=== PATIENT | male | born 1935 | race Two or more races ===

== ENCOUNTER 2017-12-14 00:24 | Emergency (ER) | payer MEDICAID, OTHER ==
[~2017-12-14] VITALS: Ht 165.1 cm; Wt 74.8 kg
--- NOTE | 2017-12-14 00:24 | NUR ---
DR IVETTE SINGH AT BEDSIDE FOR MSE.
--- NOTE | 2017-12-14 00:24 | NUR ---
PT VOMITED IN GURNEY AND ON FLOOR ON WAY TO ROOM BY EMS.
--- NOTE | 2017-12-14 00:29 | NUR ---
PT PRESENTS TO ED BIB AMBULANCE FOLLOWING A REPORTED SYNCOPAL EPISODE. SON STATES THEY WERE OUT TO DINNER, WHEN PT GRABBED HIS HEAD AND SUDDENLY COLAPSED/FELL. PT PRESENTS UNREPONSIVE, BUT WITHDRAWS TO PAIN. PUPILS FIXED AND EQUAL, UNREACTIVE TO LIGHT.
--- NOTE | 2017-12-14 00:35 | NUR ---
CODE STROKE INITIATED
--- NOTE | 2017-12-14 00:35 | NUR ---
EKG COMPLETED. PT ON MONITOR, PULSE OX, AND BP PER MD.
--- NOTE | 2017-12-14 00:36 | NUR ---
PT CONTINUES TO WRETCH IN BED. DECISION MADE BY DR STEELE TO PREPARE FOR INTUBATION TO PROTECT PT AIRWAY.
[2017-12-14] MEDS ORDERED: ONDANSETRON 4 MG/2 ML VIAL IV ONE (00:45)
[2017-12-14] MEDS ORDERED: PROPOFOL 100 ML ONE (00:49)
--- NOTE | 2017-12-14 00:55 | NUR ---
Note zana in EDM - 12/16/17 at 0237 by OLIVERIO UPON ADMINISTRATION OF ASPIRIN SUPPOSITORY, SKIN ASSESSED. NO SKIN ISSUES OR NOTED TRAUMA FROM SYNCOPAL EPISODE. PT REPOSITIONED FOR COMFORT. ALONSO PLACED W/O ISSUE, AND URINE SENT TO LAB.
[2017-12-14 01:00] LABS: BASOPHILS % (AUTO) 0.4 % (0.0-2.0); EOSINOPHILS # (AUTO) 0.2 K/uL (0.0-0.7); EOSINOPHILS % (AUTO) 2.4 % (0.0-7.0); HEMATOCRIT 47.4 % (36.7-47.1); HEMOGLOBIN 16.1 g/dL (12.5-16.3); LYMPHOCYTES # (AUTO) 3.9 K/uL (20.0-40.0); LYMPHOCYTES % (AUTO) 42.8 % (20.5-51.5); MEAN CORPUSCULAR HEMOGLOBIN 31.3 uug (23.8-33.4); MEAN CORPUSCULAR HGB CONC 34 g/dL (32.5-36.3); MEAN CORPUSCULAR VOLUME 92.4 fL (73.0-96.2); MONOCYTES # (AUTO) 0.7 K/uL (2.0-10.0); MONOCYTES % (AUTO) 8.3 % (0.0-11.0); NEUTROPHILS # (AUTO) 4.1 K/uL (1.8-8.9); NEUTROPHILS % (AUTO) 46.1 % (38.5-71.5); PLATELET COUNT (AUTO) 167 K/uL (152-348); RED BLOOD CELL COUNT(AUTO) 5.13 MIL/uL (4.06-5.63)
[2017-12-14] MEDS ORDERED: ROCURONIUM BROMIDE 50 MG/5 ML VIAL IV ONE (01:00)
[2017-12-14] MEDS ORDERED: ETOMIDATE 20 MG/10 ML VIAL IV ONE (01:00)
[2017-12-14] MEDS ORDERED: PROPOFOL 100 ML IV PRN (01:00)
--- NOTE | 2017-12-14 01:00 | NUR ---
PT TAKEN TO CT. ACCOMPANIED BY RT AND RN ALONG W/ PUTTIER
--- NOTE | 2017-12-14 01:06 | NUR ---
PER PTS SON, PT TAKES ELIQUIS (ANTICOAGULANT), MAKING PT INELIGIBLE FOR TPA IF INDICATED.
[2017-12-14 01:12] LABS: ALANINE AMINOTRANSFERASE 44 U/L (16-63); ALKALINE PHOSPHATASE 126 U/L (50-136); ASPARTATE AMINOTRANSFERASE 24 U/L (15-37); BILIRUBIN,DIRECT 0.3 mg/dL (0.0-0.2); BILIRUBIN,TOTAL 1.7 mg/dL (0.2-1.0); CARBON DIOXIDE 30 mmol/L (21-32); CHLORIDE 104 mmol/L (98-107); CHOLESTEROL 67 mg/dL (<200); CREATININE 1.4 mg/dL (0.6-1.3); GLUCOSE 158 mg/dL (74-106); HDL CHOLESTEROL 41 mg/dL (40-60); POTASSIUM 3.8 mmol/L (3.5-5.1); TOTAL PROTEIN, SERUM 7.9 g/dL (6.4-8.2); TRIGLYCERIDES 67 MG/DL (30-150); UREA NITROGEN, BLOOD 23 mg/dL (7-18)
--- NOTE | 2017-12-14 01:13 | NUR ---
PT BACK IN ROOM FROM CT.
[2017-12-14] MEDS ORDERED: ONDANSETRON 4 MG/2 ML VIAL ONE (01:30)
--- NOTE | 2017-12-14 01:40 | NUR ---
VENT SETTINGS: AC 16 TIDAL VOLUME 550 PEEP 5 FIO2 40
[2017-12-14] MEDS ORDERED: ASPIRIN 300 MG RECTAL SUPP RC ONE ×2 (01:41→01:45)
--- NOTE | 2017-12-14 01:55 | NUR ---
UPON ADMINISTRATION OF ASPIRIN SUPPOSITORY, SKIN ASSESSED. NO SKIN ISSUES OR NOTED TRAUMA FROM SYNCOPAL EPISODE. PT REPOSITIONED FOR COMFORT. ALONSO PLACED W/O ISSUE, AND URINE SENT TO LAB.
--- NOTE | 2017-12-14 02:09 | NUR ---
PTS SON EXPRESSES CONCERN OVER PTS FEET BEGINNING TO INCREASINGLY TWITCH. PROPOFOL DRIP INCREASED FROM 4.52 MLS/HR TO 6.79 MLS/HR PER WEIGHT BASED DOSAGE.
[2017-12-14 02:13] LABS: ABG BASE EXCESS 3.8 mmol/L; ABG HCO3 25.7 mmol/L; ABG PCO2 31.2 mmHg (35.0-45.0); ABG PH 7.534 (7.350-7.450); ABG PO2 353.7 mmHg (75.0-100.0); ABG SITE LEFT RADIAL; COHb 0.7 % (0.5-1.5); O2Hb 98.6 % (94.0-97.0); VENT MODE VENT - A/C; VT, ABG 550 mL
[2017-12-14] MEDS ORDERED: EMPA25TA PO (02:24)
[2017-12-14] MEDS ORDERED: GLIM1TAB3 PO (02:24)
[2017-12-14] MEDS ORDERED: AMLO5TAB2 PO (02:24)
[2017-12-14] MEDS ORDERED: ATOR40TA PO (02:24)
[2017-12-14] MEDS ORDERED: APIX5TAB PO (02:24)
[2017-12-14] MEDS ORDERED: BISO5TAB2 PO (02:24)
[2017-12-14] MEDS ORDERED: DIGO125T PO (02:24)
[2017-12-14] MEDS ORDERED: LOSA50TA21 PO (02:24)
[2017-12-14] MEDS ORDERED: FURO40TA5 PO (02:24)
[2017-12-14] MEDS ORDERED: IV NORMAL SALINE 100 ML ONE (02:44)
[2017-12-14] MEDS ORDERED: IOHEXOL 350 100 ML INFUS..BTL ONE (02:44)
--- NOTE | 2017-12-14 02:51 | NUR ---
[facility]FORMATION FOR [facility] Ronald PAYAN ROOM [id number] PHONE # FOR REPORT: [phone]
--- NOTE | 2017-12-14 03:02 | NUR ---
PTS FAMILY UNSURE OF ALLERGIES AND MED HISTORY, AND THEREFORE DOES NOT FEEL CONFORTABLE SIGNING CONSENT FOR CT W/ CONTRAST AT THIS POINT INT TIME.
--- NOTE | 2017-12-14 03:12 | NUR ---
REPORT GIVEN TO TITUS DEL ANGEL AT [facility].
--- NOTE | 2017-12-14 04:08 | NUR ---
Patient Tranfers to outside Facility Physician: Ronald PAYAN Location: [facility]
== END 2017-12-14 04:11 | disposition short-term general hospital (02) ==
LOC: ER 00:35
DX: R41.82 Altered mental status, unspecified (principal); J96.00 Acute respiratory failure, unspecified whether with hypoxia or hypercapnia; R79.89 Other specified abnormal findings of blood chemistry; I48.91 Unspecified atrial fibrillation; I10 Essential (primary) hypertension; Z86.73 Personal history of transient ischemic attack (TIA), and cerebral infarction without residual deficits; Z79.899 Other long term (current) drug therapy
CPT/HCPCS: 36415; 36600; 70030-TC; 70450; 71045; 85025; 85730; 86850; 86900; 86901; 93005; A4663; J2405; J3490; Q9967